=== PATIENT | female | born 1975 | race Caucasian/White ===

== ENCOUNTER → 2018-11-14 | Outpatient (CLI) | payer BC ==
[2018-11-14 16:16] VITALS: BP 131/64; PULSE 79; TEMP 97.7; BMI 22.1
--- NOTE | 2018-11-14 17:37 | P.BASOAP ---
Subjective Progress Note Date: 11/14/18 Principal diagnosis: Morbid obesity Patient apparently has had 2 months worth of significant reflux symptoms. She was told she needed an upper endoscopy. Here today to discuss her symptoms of reflux. Denies pain. History of previous prolapse. Objective - Vital Signs Vital signs: Vital Signs Temp 97.7 F 11/14/18 16:06 Pulse 79 11/14/18 16:06 Resp BP 131/64 11/14/18 16:06 Pulse Ox Intake & Output 11/13/18 11/14/18 11/14/18 18:59 06:59 18:59 Weight 60.328 kg - Exam Abdomen: Soft, nontender, nondistended Assessment/Plan (1) Obesity Narrative/Plan: Patient with worsening reflux. We'll into the patient's band at this time. Check esophagogram.The patient's lap band port was palpated. The site was aseptically prepped. The Espinoza needle was advanced into the port. A total of 6 ml of fluid was evacuated. Pressure was held and a sterile dressing was applied. Plan: Date: 11/14/18 Initial Weight: Initial BMI: Current Weight: 60.328 kg Current BMI: 22.1 Type of Surgery: Total Volume in Band: 0 Previous Volume: Volume Removed: 6 Volume Added: Band Size:
== END | disposition home or self-care (01) ==
LOC: BARWHC3 15:03
PROVIDERS: ATTEND Surgery
DX: E66.9 Obesity, unspecified (principal); K21.9 Gastro-esophageal reflux disease without esophagitis; Z68.22 Body mass index [BMI] 22.0-22.9, adult
CPT/HCPCS: 99212

== ENCOUNTER → 2018-11-23 | Outpatient (CLI) | payer BC ==
--- NOTE | 2018-11-23 13:09 | FL ---
EXAMINATION TYPE: FL barium swallow DATE OF EXAM: 11/23/2018 CLINICAL HISTORY: Dysphagia. Much improved after removal of gastric lap band fluid. TECHNIQUE: Single contrast esophagram is performed using thin contrast only. 2.01 minute of fluorosco py time was utilized with 21 images saved. COMPARISON: None. FINDINGS: Pre-procedure marshmallow runner image shows lap band in satisfactory position in proximal stomach ju st below the gastroesophageal junction. Phi angle is borderline measuring 58 degrees however (is not entirely in profile. The patient then drank oral contrast. There is good flow of contrast along the course of the esophagus initially with a small volume readily passing through the lap band however th ere is marked delayed flow with stasis and nonopacification of a moderate amount of fluid in the dist al esophagus. There is no evidence of contrast extravasation to suggest leak. There is no significa nt gastric prolapse appreciated. IMPRESSION: 1. 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 2. Borderline phi angle although no evidence of significant prolapse lap band at this time.
== END | disposition home or self-care (01) ==
LOC: RADUSWWP 10:52
PROVIDERS: ATTEND Surgery
DX: R13.10 Dysphagia, unspecified (principal)
CPT/HCPCS: 74220

== ENCOUNTER → 2018-11-28 | Outpatient (CLI) | payer BC ==
[2018-11-28 13:33] VITALS: BP 125/71; PULSE 71; TEMP 98.1; BMI 23.4
--- NOTE | 2018-11-28 21:56 | P.BASOAP ---
Subjective Progress Note Date: 11/28/18 Principal diagnosis: GERD Patient returns for evaluation. She had her band emptied 2 weeks and. 6 cc was removed at that time. Patient has gained 7 pounds since then. Esophagram performed last week showed low transit through the distal esophagus. There is no evidence of obstruction at the band site. There is no prolapse seen upon my review. No evidence of erosion either at this point. Her symptoms resolved after emptying her band. She feels normal. She actually was hoping to have a fill. She did have a 2 hour episode of chest pain after her band was loosened likely related to esophageal spasm. Objective - Vital Signs Vital signs: Vital Signs Temp 98.1 F 11/28/18 13:24 Pulse 71 11/28/18 13:24 Resp BP 125/71 11/28/18 13:24 Pulse Ox Intake & Output 11/28/18 11/28/18 11/29/18 06:59 18:59 06:59 Weight 63.957 kg - Exam Abdomen: Soft, nontender, nondistended Assessment/Plan (1) Obesity Narrative/Plan: Options reviewed with the patient. Some degree of chronic esophageal dilation and associated dysmotility suspected. Recommend keeping band empty for now. Will return in 1 month. We did discuss alternative bariatric options. The patient is not interested in additional surgery unless absolutely necessary. We will consider small adjustment next visit.Will consider short-term follow-up esophagram after band adjustments are reinitiated. Plan: Date: 11/28/18 Initial Weight: Initial BMI: Current Weight: 63.957 kg Current BMI: 23.4 Type of Surgery: Total Volume in Band: 0 Previous Volume: Volume Removed: Volume Added: Band Size:
== END | disposition home or self-care (01) ==
LOC: BARWHC3 12:53
PROVIDERS: ATTEND Surgery
DX: E66.9 Obesity, unspecified (principal); Z68.23 Body mass index [BMI] 23.0-23.9, adult
CPT/HCPCS: 99211

== ENCOUNTER → 2019-01-09 | Outpatient (CLI) | payer BC ==
[2019-01-09 15:35] VITALS: BP 123/84; PULSE 83; RESP 16; TEMP 97; BMI 25.0
--- NOTE | 2019-01-09 16:19 | P.BASOAP ---
Subjective Progress Note Date: 01/09/19 Principal diagnosis: Morbid obesity Patient returns for evaluation. Her band has remained empty. A total of 6 mL was removed. Patient upper GI suggested some degree of esophageal dilation. Patient thankfully is only gained about 10 pounds since her last visit. She would like to start refilling the band. She is not interested in any alternative bariatric procedures. Objective - Vital Signs Vital signs: Vital Signs Temp 97 F L 01/09/19 15:31 Pulse 83 01/09/19 15:31 Resp 16 01/09/19 15:31 BP 123/84 01/09/19 15:31 Pulse Ox Intake & Output 01/08/19 01/09/19 01/09/19 18:59 06:59 18:59 Weight 68.039 kg - Exam Abdomen: Soft, nontender, nondistended Assessment/Plan (1) Obesity Narrative/Plan: Patient doing well at this time. No symptoms of dysphagia or reflux. We've agreed to add 3 mL of fluid at this time. We'll consider an additional 1 mL next Visit.The patient's lap band port was palpated. The site was aseptically prepped. The Espinoza needle was advanced into the port. A total of 3 ml of fluid was added for a total of 3 mL. Pressure was held and a sterile dressing was applied. Plan: Date: 01/09/19 Initial Weight: 124.738 kg Initial BMI: 45.7 Current Weight: 68.039 kg Current BMI: 25.0 Type of Surgery: Total Volume in Band: 0 Previous Volume: Volume Removed: Volume Added: Band Size:
== END | disposition home or self-care (01) ==
LOC: BARWHC3 15:15
PROVIDERS: ATTEND Surgery
DX: E66.9 Obesity, unspecified (principal); Z68.25 Body mass index [BMI] 25.0-25.9, adult
CPT/HCPCS: 99212

== ENCOUNTER → 2019-02-06 | Outpatient (CLI) | payer BC ==
[2019-02-06 16:09] VITALS: BP 124/82; PULSE 77; TEMP 98; BMI 25.2
--- NOTE | 2019-02-06 21:17 | P.BASOAP ---
Subjective Progress Note Date: 02/06/19 Principal diagnosis: Morbid obesity Patient doing well since last visit. Here today requesting a band adjustment. Currently has 3 cc in her band. Was emptied when she had evidence of esophageal dilation. She is up 2 pounds. Denies nausea or vomiting. No GERD symptoms. Objective - Vital Signs Vital signs: Vital Signs Temp 98 F 02/06/19 16:08 Pulse 77 02/06/19 16:08 Resp BP 124/82 02/06/19 16:08 Pulse Ox Intake & Output 02/06/19 02/06/19 02/07/19 06:59 18:59 06:59 Weight 68.946 kg - Exam Abdomen: Soft, nontender, nondistended Assessment/Plan (1) Obesity Narrative/Plan: Patient doing well. She would like a band adjustment. We have agreed on 1 cc to be adequate. Total of 4 cc. Follow-up if further fills requested. Plan: Date: 02/06/19 Initial Weight: 124.738 kg Initial BMI: 45.7 Current Weight: 68.946 kg Current BMI: 25.2 Type of Surgery: Total Volume in Band: 0 Previous Volume: Volume Removed: Volume Added: Band Size:
== END | disposition home or self-care (01) ==
LOC: BARWHC3 15:13
PROVIDERS: ATTEND Surgery
DX: Z46.51 Encounter for fitting and adjustment of gastric lap band (principal); E66.01 Morbid (severe) obesity due to excess calories; K22.8 Other specified diseases of esophagus; Z68.25 Body mass index [BMI] 25.0-25.9, adult
CPT/HCPCS: 99211

== ENCOUNTER → 2019-03-06 | Outpatient (CLI) | payer BC ==
[2019-03-06 16:03] VITALS: BP 125/78; PULSE 80; TEMP 98.1; BMI 25.9
--- NOTE | 2019-03-06 16:29 | P.BASOAP ---
Subjective Progress Note Date: 03/06/19 Principal diagnosis: Morbid obesity Patient returns today for evaluation. Requesting a lap band adjustment. Currently has 4 mL in the band. Had dysphagia vomiting and esophageal dilation at 6 mL. No GERD. Still feels loose. Objective - Vital Signs Vital signs: Vital Signs Temp 98.1 F 03/06/19 16:01 Pulse 80 03/06/19 16:01 Resp BP 125/78 03/06/19 16:01 Pulse Ox Intake & Output 03/05/19 03/06/19 03/06/19 18:59 06:59 18:59 Weight 70.76 kg - Exam Abdomen: Soft, nontender, nondistended Assessment/Plan (1) Obesity Narrative/Plan: Patient requesting a lap band adjustment. We'll add 1 mL for a total of 5 mL. Plan upper GI prior to any further lap band fills. The patient's lap band port was palpated. The site was aseptically prepped. The Espinoza needle was advanced into the port. A total of 1 ml of fluid was add. Pressure was held and a sterile dressing was applied. Plan: Date: 03/06/19 Initial Weight: 124.738 kg Initial BMI: 45.7 Current Weight: 70.76 kg Current BMI: 25.9 Type of Surgery: Total Volume in Band: 5 Previous Volume: Volume Removed: Volume Added: 1 Band Size:
== END | disposition home or self-care (01) ==
LOC: BARWHC3 15:12
PROVIDERS: ATTEND Surgery
DX: E66.01 Morbid (severe) obesity due to excess calories (principal); Z46.51 Encounter for fitting and adjustment of gastric lap band; Z68.26 Body mass index [BMI] 26.0-26.9, adult
CPT/HCPCS: 99212

== ENCOUNTER → 2024-07-31 | Outpatient (CLI) | payer BC ==
[2024-07-31 14:00] VITALS: BP 114/77; PULSE 102; RESP 16; TEMP 98.1; BMI 18.9
--- NOTE | 2024-07-31 15:42 | P.BASOAP ---
Subjective Progress Note Date: 07/31/24 Principal diagnosis: Vomiting and GERD 49-year-old female well-known to our service. Here today with complaints of progressive weight loss along with frequent vomiting and heartburn. Symptoms worse for the last several months. Says that after her last adjustment 5 years ago she went down to around 125 and maintained a weight around that until the last several months where she dropped another 10 pounds. Now having inability to tolerate most foods and even some liquids. Frequent vomiting. Worsening heartburn especially at night. No pain. Patient says she thinks her symptoms were aggravated after doing a bowel cleanse for a colonoscopy. She ended up having to cancel the colonoscopy. Objective - Vital Signs Vital signs: Vital Signs Temp 98.1 F 07/31/24 13:57 Pulse 102 H 07/31/24 13:57 Resp 16 07/31/24 13:57 BP 114/77 07/31/24 13:57 Pulse Ox FiO2 Intake & Output 07/30/24 07/31/24 07/31/24 18:59 06:59 18:59 Weight 51.71 kg - Exam Abdomen: Soft, nontender, nondistended Assessment/Plan (1) Obesity Narrative/Plan: Patient's band clearly too tight by history. Will add to the band at this time. Recommend upper and lower endoscopy in 3 to 4 weeks after resolution of edema at the band site. The patient's lap band port was palpated. The site was aseptically prepped. The Espinoza needle was advanced into the port. A total of 4 ml of fluid was removed. Pressure was held and a sterile dressing was applied. Plan: Date: 07/31/24 Initial Weight: 124.738 kg Initial BMI: 45.7 Current Weight: 51.71 kg Current BMI: 18.9 Type of Surgery: Adjustable Gastric Banding Total Volume in Band: 5 Previous Volume: Volume Removed: Volume Added: Band Size:
== END ==
LOC: BARWHC3 13:50
PROVIDERS: ATTEND Surgery
DX: E66.01 Morbid (severe) obesity due to excess calories (principal); Z88.0 Allergy status to penicillin; Z88.1 Allergy status to other antibiotic agents; Z68.1 Body mass index [BMI] 19.9 or less, adult
CPT/HCPCS: 43999

== ENCOUNTER → 2024-08-28 | Day surgery (SDC) | payer BC ==
[~2024-08-28] MED LIST: LIDOCAINE 1% INJ 10MG/ML (20 ML MDV) ONE; MIDAZOLAM 2 MG/2 ML VIAL ONE; PROPOFOL 10 MG/ML 20 ML VIAL IV ONE; fentaNYL (PF) 50 MCG/ML 2 ML AMP ONE
[2024-08-28] MEDS: IV FLUID CONTINUATION 1,000 ML IV ONE (10:47)
[2024-08-28 10:57] VITALS: TEMP 97
[2024-08-28] MEDS: LACTATED RINGERS 1,000 ML IV SCH (11:03)
--- NOTE | 2024-08-28 11:33 | P.GSHP ---
History of Present Illness H&P Date: 08/28/24 Chief Complaint: GERD, screening 49-year-old female known to our service from the bariatric center. Please refer to recent note from her bariatric visit. Patient feels well after emptying her band. No further reflux or dysphagia. She gained 10 pounds. No bowel complaints. Due for screening colonoscopy. Past Medical History Past Medical History: GERD/Reflux, Osteoarthritis (OA) Additional Past Medical History / Comment(s): seasonal allergies, emelia wrist pain History of Any Multi-Drug Resistant Organisms: None Reported Past Surgical History: Bariatric Surgery, Joint Replacement, Orthopedic Surgery Additional Past Surgical History / Comment(s): right shoulder surgery, lap band surgery, rt breast bx- benign, left foot surgery, bowel [facility] as a child( [facility] Past Anesthesia/Blood Transfusion Reactions: Postoperative Nausea & Vomiting (PONV) Smoking Status: Current every day smoker - Past Family History Mother Family Medical History: Cancer Additional Family Medical History / Comment(s): uterine Medications and Allergies Home Medications Medication Instructions Recorded Confirmed Type Cetirizine HCl [Zyrtec] 10 mg PO DIRECTED 11/14/18 08/23/24 History Famotidine [Pepcid] 20 mg PO HS 11/14/18 08/23/24 History Omeprazole 40 mg PO DAILY 11/14/18 08/23/24 History Cholecalciferol (Vitamin D3) 75 mcg PO DAILY 07/31/24 08/23/24 History [Vitamin D3 (3000 Iu)] Fluticasone Nasal [place] [Flonase 1 spray NASAL DIRECTED 07/31/24 08/23/24 History Nasal [place]] Magnesium 200 mg PO HS 07/31/24 08/23/24 History Vitamin B Complex 1 capsule PO DAILY 07/31/24 08/23/24 History Allergies Allergy/AdvReac Type Severity Reaction Status Date / Time amoxicillin [From Augmentin] Allergy Anaphylaxis Verified 08/23/24 10:59 clavulanic acid Allergy Anaphylaxis Verified 08/23/24 10:59 [From Augmentin] Surgical - Exam Vital Signs Temp Pulse Resp BP Pulse Ox 97 F L 73 18 127/83 100 08/28/24 10:56 08/28/24 10:56 08/28/24 10:56 08/28/24 10:56 08/28/24 10:56 Physical exam: General: Well-developed, well-nourished HEENT: Normocephalic, sclerae nonicteric Abdomen: Nontender, nondistended Extremities: No edema Neuro: Alert and oriented Assessment and Plan (1) GERD (gastroesophageal reflux disease) Narrative/Plan: Will proceed with upper and lower endoscopy Current Visit: Yes Status: Acute Code(s): K21.9 - GASTRO-ESOPHAGEAL REFLUX DISEASE WITHOUT ESOPHAGITIS SNOMED Code(s): 256989906
--- NOTE | 2024-08-28 11:54 | P.PCN ---
Date of Procedure: 08/28/24 Procedure(s) Performed: PREOPERATIVE DIAGNOSIS: GERD, screening POSTOPERATIVE DIAGNOSIS: Mild gastritis, tortuous esophagus, sigmoid colon polyp PROCEDURE: 1. EGD with biopsy 2. Colonoscopy with snare polypectomy ANESTHESIA: MAC SURGEON: Red Rossi M.D. SPECIMENS: Antrum, polyp ENDOSCOPIC PROCEDURE: The patient was on the endoscopy table in the left decubitus position. The Olympus gastroscope was inserted into the oropharynx and passed under direct visualization to the region of the third portion of the duodenum. From that point the scope was slowly withdrawn inspecting all surfaces carefully. There were no neoplastic inflammatory or polypoid lesions throughout the duodenum. The pylorus was widely patent. The stomach was carefully inspected. There was mild gastritis. A biopsy of the antrum took place to rule out H. pylori. Retroflexion revealed a normal hiatus and band plication. No evidence of erosion or prolapse was seen. The esophagus was then carefully examined. There were no neoplastic inflammatory or polypoid lesions throughout the visualized esophagus. The patient's esophagus was relatively tortuous. The patient was kept on the endoscopy table in the left decubitus position. The Olympus colonoscope was inserted into the anus and passed under direct visualization to the base of the cecum. The appendiceal orifice was visualized. From that point the scope was slowly withdrawn inspecting all surfaces carefully. There were no neoplastic inflammatory or polypoid lesions throughout the cecum, ascending, transverse, and descending colon. In the sigmoid colon a small polyp was seen and removed using the snare with cautery technique. The remainder the sigmoid and rectum was normal. The patient had no visible diverticulosis. Digital rectal examination was normal. The patient was taken to the recovery room in stable condition per anesthesia guidelines. RECOMMENDATIONS: Await biopsy results. Will contact patient with timing for next colonoscopy. Consider refilling band at some point
[2024-08-28 12:24] VITALS: PULSE 66; RESP 16
[2024-08-28 12:47] VITALS: BP 120/80
== END ==
LOC: ORWHC2ENDO 10:25
PROVIDERS: ATTEND Surgery
DX: Z12.11 Encounter for screening for malignant neoplasm of colon (principal); K29.70 Gastritis, unspecified, without bleeding; K63.5 Polyp of colon; K21.9 Gastro-esophageal reflux disease without esophagitis; F17.210 Nicotine dependence, cigarettes, uncomplicated; M19.90 Unspecified osteoarthritis, unspecified site; Z89.231 Acquired absence of right shoulder; Z88.0 Allergy status to penicillin; Z88.1 Allergy status to other antibiotic agents; Z79.899 Other long term (current) drug therapy
CPT/HCPCS: 81025; 88305; 45385; 43239; J2250; J2003; J3010; J2704